=== PATIENT | female | born 1985 | race Caucasian/White ===

== ENCOUNTER 2016-10-20 09:29 | Emergency (ER) | payer SELFPAY ==
--- NOTE | 2016-10-20 09:48 | ED ---
Lower Extremity - HPI Summary HPI Summary: 31 female presents with complaints of left foot injury and pain after having a wheelchair van ramp fall onto the top of her foot on Tuesday 10/17. Patient was wearing heavy duty boots. Presents today because she has been icing, elevating and resting with minimal improvement. Is concerned for fracture. Is able to bear weight and walk. No other sustained injuries. Admits to swelling and bruising, swelling has improved since injury. Denies PMHx. Has not taken any medications. Pain is worse with touching and flexing foot. - History of Current Complaint Chief Complaint: EDExtremityLower Stated Complaint: LT FOOT INJURY Time Seen by Provider: 10/20/16 09:39 Hx Obtained From: Patient Hx Last Menstrual Period: 03/06/15 Mechanism Of Injury: Blunt Trauma - wheelchair van ramp Onset of Pain: Immediate Onset/Duration: Days - 4 Severity Initially: Severe Severity Currently: Moderate Pain Intensity: 8 Pain Scale Used: 0-10 Numeric Timing: Constant Location: Is Discrete @ - anterior left foot Character Of Pain: Aching Associated Signs And Symptoms: Positive: Swelling, Bruising Aggravating Factor(s): Movement, Other - touch Alleviating Factor(s): Rest, Elevation, Ice Able to Bear Weight: Yes - Allergies/Home Medications Allergies/Adverse Reactions: Allergies Allergy/AdvReac Type Severity Reaction Status Date / Time Theophylline Allergy Hives Verified 03/08/15 13:44 [From Slo-bid Gyrocaps] PMH/Surg Hx/FS Hx/Imm Hx Endocrine/Hematology History: Denies: Hx Diabetes, Hx Thyroid Disease Cardiovascular History: Denies: Hx Hypertension Respiratory History: Reports: Hx Asthma - CHILDHOOD Denies: Hx Chronic Obstructive Pulmonary Disease (COPD) GI History: Denies: Hx Ulcer - Surgical History Surgery Procedure, Year, and Place: FATTY TISSUE REMOVED FROM NECK - Immunization History Immunizations Up to Date: Yes Infectious Disease History: Denies: Hx Hepatitis, Hx Human Immunodeficiency Virus (HIV), Traveled Outside the [place] in Last 30 Days - Family History Known Family History: Positive: None - Social History Alcohol Use: Occasionally Substance Use Type: Reports: None Smoking Status (MU): Heavy Every Day Tobacco Smoker Amount Used/How Often: 1/2 PPD Review of Systems Constitutional: Negative Cardiovascular: Negative Respiratory: Negative Positive: Arthralgia, Myalgia, Edema - left foot Positive: Bruising - left foot Neurological: Negative All Other Systems Reviewed And Are Negative: Yes Physical Exam Triage Information Reviewed: Yes Vital Signs On Initial Exam: Initial Vitals Temp Pulse Resp BP Pulse Ox 97.4 F 86 16 123/80 97 10/20/16 09:33 10/20/16 09:33 10/20/16 09:33 10/20/16 09:33 10/20/16 09:33 Vital Signs Reviewed: Yes Appearance: Positive: Well-Appearing, No Pain Distress, Well-Nourished Skin: Positive: Warm, Skin Color Reflects Adequate Perfusion, Dry, Soft, Other - ecchymosis/contusion noted on left anterior foot just proximal to toes, some mild edema also noted in area when compared to right foot. No open wounds, rest of skin exam normal.. Negative: Cold, Numb Head/Face: Positive: Normal Head/Face Inspection Eyes: Positive: Normal ENT: Positive: Hearing grossly normal Neck: Positive: Supple, Nontender Respiratory/Lung Sounds: Positive: Clear to Auscultation, Breath Sounds Present. Negative: Rales, Rhonchi, Wheezes Cardiovascular: Positive: Normal, RRR, Pulses are Symmetrical in both Upper and Lower Extremities - 2+ pedal b/l. Negative: Murmur, Rub Musculoskeletal: Positive: Strength/ROM Intact - with pain, Pain @ - palpation of anterior foot just proximal to toes. ecchymosis, Edema Left - anterior top of foot. Negative: Interruption @ Neurological: Positive: Normal, Sensory/Motor Intact - sensation intact, Alert, Oriented to Person Place, Time, CN Intact II-III, Reflexes Intact, NV Bundle Intact Distally, Normal Gait Psychiatric: Positive: Affect/Mood Appropriate Diagnostics - Vital Signs Vital Signs Temp Pulse Resp BP Pulse Ox 10/20/16 09:33 97.4 F 86 16 123/80 97 - Laboratory Lab Statement: Any lab studies that have been ordered have been reviewed, and results considered in the medical decision making process. - Radiology left foot Xray Interpretation: No Acute Changes - NO ACUTE OSSEOUS INJURY. IF SYMPTOMS PERSIST, RECOMMEND REPEAT IMAGING. Radiology Interpretation Completed By: Radiologist Lower Extremity Course/Dx - Course Course Of Treatment: x-ray obtained and negative. given ibuprofen for pain and inflammation. rukhsana bandage for compression and support. Continue RICE and NSAIDs. Follow up with PCP. Aware of worsening signs and symptoms to watch out for. - Diagnoses Differential Diagnosis/HQI/PQRI: Positive: Contusion, Dislocation, Fracture ( Closed), Sprain, Strain Provider Diagnoses: Foot contusion Discharge - Discharge Plan Condition: Stable Disposition: HOME Patient Education Materials: Foot Contusion (ED) Referrals: Sara Gruber MD [Primary Care Provider] - Additional Instructions: Take Advil for pain and inflammation for the next 2-3 days. Rest, elevate and ice. For the next 2 weeks. Wear rukhsana bandage for support and compression. If symptoms worsen or do not improve within the next week please seek medical attention. Follow up with PCP.
--- NOTE | 2016-10-20 10:02 | RAD ---
HISTORY: Left foot pain and injury COMPARISONS: None VIEWS: 3, Frontal, lateral, and oblique views of the left foot FINDINGS: BONE DENSITY: Normal. BONES: There is no displaced fracture. JOINTS: There is no arthropathy. ALIGNMENT: There is no dislocation. SOFT TISSUES: Unremarkable. OTHER FINDINGS: None. IMPRESSION: NO ACUTE OSSEOUS INJURY. IF SYMPTOMS PERSIST, RECOMMEND REPEAT IMAGING.
[2016-10-20] MEDS ORDERED: Ibuprofen TAB* 600 MG PO ONE (10:29)
[2016-10-20 11:27] VITALS: BP 101/60
== END 2016-10-20 11:10 | disposition home or self-care (01) ==
LOC: ED 09:29
DX: S90.32XA Contusion of left foot, initial encounter (principal); Y93.89 Activity, other specified; Y92.89 Other specified places as the place of occurrence of the external cause; W20.8XXA Other cause of strike by thrown, projected or falling object, initial encounter; F17.210 Nicotine dependence, cigarettes, uncomplicated
CPT/HCPCS: 99282; A9270-GY

== ENCOUNTER 2022-01-22 09:52 | Inpatient (IN) ==
[2022-01-22 13:34] LABS: HDL Cholesterol 64.4 mg/dL
[2022-01-22 14:49] LABS: Hematocrit 43 % (35-47); Hemoglobin 14.3 g/dL (12.0-16.0); Mean Corpuscular HGB Conc 33 g/dL (31-36); Mean Corpuscular Hemoglobin 30 pg (27-31); Mean Corpuscular Volume 90 fL (80-97); Red Blood Count 4.82 10^6 /uL (3.70-4.87); Red Cell Distribution Width 14 % (10-15); White Blood Count 5.8 10^3/uL (3.5-10.8)
[2022-01-22 15:14] LABS: HCG Pregnancy 2.38 mIU/mL
[2022-01-22 15:22] LABS: TSH Ultra Thyroid Stim Horm 0.64 mcIU/mL (0.34-5.60)
[2022-01-22 15:27] LABS: ALT 9 U/L (7-52); AST 15 U/L (13-39); Acetaminophen < 15 mcg/mL; Albumin/Globulin Ratio 1.7 (1-3); Alcohol, S < 13 mg/dL (<13); Alkaline Phosphatase 66 U/L (35-149); Anion Gap 9 mmol/L (2-11); Blood Urea Nitrogen 13 mg/dL (6-24); CO2 Carbon Dioxide 23 mmol/L (22-32); Calcium 9.2 mg/dL (8.6-10.3); Chloride 107 mmol/L (101-111); Globulin 2.3 g/dL (2-4); Glucose 84 mg/dL (70-100); Potassium 4.6 mmol/L (3.5-5.0); Salicylate < 2.50 mg/dL (<30); Sodium 139 mmol/L (135-145); Total Protein 6.3 g/dL (6.4-8.9); eGFR CKD-EPI 104.1 (>60)
[2022-01-22 15:52] LABS: ABS Eosinophils 0.1 10^3/ul (0-0.6); ABS Lymphocytes 1.8 10^3/ul (1.0-4.8); ABS Monocytes 0.4 10^3/ul (0-0.8); ABS Neutrophils 3.5 10^3/ul (1.5-7.7); Eosinophil % 2.1 %; Lymphocyte % 30.1 %; Mean Platelet Volume 10.9 fL (7.4-10.4); Nucleated Red Blood Cells % 0.1; Platelet Count 205 10^3/uL (150-450)
[2022-01-22] MEDS: Nicotine GUM 2MG FRUIT FLAVOR PO PRN (20:36)
[2022-01-23] MEDS: Nicotine GUM 2MG FRUIT FLAVOR PO PRN (11:53)
[2022-01-23] MEDS: Nicotine PATCH 14 MG/24 HR PATCH TRANSDERM SCH (15:28)
[2022-01-24 08:00] LABS: HDL Cholesterol 49.2 mg/dL
[2022-01-24] MEDS: Nicotine PATCH 14 MG/24 HR PATCH TRANSDERM SCH (13:10)
[2022-01-25] MEDS: Nicotine PATCH 14 MG/24 HR PATCH TRANSDERM SCH (11:48)
[2022-01-26] MEDS: Nicotine PATCH 14 MG/24 HR PATCH TRANSDERM SCH (09:55)
[2022-01-27] MEDS: Nicotine PATCH 14 MG/24 HR PATCH TRANSDERM SCH (10:20)
[2022-01-28] MEDS: Nicotine PATCH 14 MG/24 HR PATCH TRANSDERM SCH (11:51)
[2022-01-28] MEDS: Al Hydrox/Mg Hydrox/Simet LIQ 30 ML UDC PO PRN (19:47)
[2022-01-29] MEDS: Nicotine PATCH 14 MG/24 HR PATCH TRANSDERM SCH (09:31)
[2022-01-29] MEDS: Al Hydrox/Mg Hydrox/Simet LIQ 30 ML UDC PO PRN (15:58)
[2022-01-30] MEDS: Nicotine PATCH 14 MG/24 HR PATCH TRANSDERM SCH (07:42)
[2022-01-31] MEDS: Nicotine PATCH 14 MG/24 HR PATCH TRANSDERM SCH (09:15)
[2022-01-31] MEDS: Al Hydrox/Mg Hydrox/Simet LIQ 30 ML UDC PO PRN (11:52)
[2022-02-01] MEDS: Nicotine PATCH 14 MG/24 HR PATCH TRANSDERM SCH (08:50)
[2022-02-01] MEDS: Al Hydrox/Mg Hydrox/Simet LIQ 30 ML UDC PO PRN (16:59)
[2022-02-02] MEDS: Nicotine PATCH 14 MG/24 HR PATCH TRANSDERM SCH (08:48)
[2022-02-03] MEDS: Nicotine PATCH 14 MG/24 HR PATCH TRANSDERM SCH (08:35)
[2022-02-04] MEDS: Nicotine PATCH 14 MG/24 HR PATCH TRANSDERM SCH (08:47)
[2022-02-04] MEDS: Al Hydrox/Mg Hydrox/Simet LIQ 30 ML UDC PO PRN (15:57)
[2022-02-05] MEDS: Nicotine PATCH 14 MG/24 HR PATCH TRANSDERM SCH (10:52)
[2022-02-06] MEDS: Nicotine PATCH 14 MG/24 HR PATCH TRANSDERM SCH (07:24)
[2022-02-06 07:33] VITALS: BP 102/62
== END 2022-02-06 09:00 | DRG 754 ==
LOC: ED 09:52 → EDHOLD 12:02 → BSU 16:32
PROVIDERS: ADMIT Psychiatry & Neurology Psychiatry; ATTEND Psychiatry & Neurology Psychiatry